=== PATIENT | male | born 1970 | race African-American/Black ===

== ENCOUNTER 2019-03-04 10:08 | Day surgery (SDC) | payer BC ==
[~2019-03-04 10:08] MED LIST: Lactated Ringers 1,000 ML IV SCH; Sodium Chloride 0.9% 10 ML Syringe FLUSH PRN
[2019-03-04] MEDS ORDERED: Propofol 200 MG/20 ML SDV ONE ×2 (12:16→12:31)
[2019-03-04] MEDS ORDERED: fentaNYL 100 MCG/2 ML SDV ONE (12:16)
--- NOTE | 2019-03-04 14:32 | OR ---
PREOPERATIVE DIAGNOSIS: Positive FIT test. POSTOPERATIVE DIAGNOSIS: Positive FIT test. PROCEDURE PERFORMED: Colonoscopy with polypectomy. INDICATION: The patient is a 49-year-old male with a history of positive FIT test, presents for colonoscopy for further evaluation. PROCEDURE IN DETAIL: This was done in the procedure room. Sedation was given per Anesthesia. He was placed in left lateral position. First, a rectal exam was done, was normal. The scope was introduced in the rectum, slowly advanced to the rectum, sigmoid, descending, transverse, and ascending colon until the cecum was reached. Upon reaching the cecum, the scope was slowly withdrawn with normal mucosal surfaces on the way out. No mucosal abnormalities, lesions, or polyps were noted until approximately 20 cm where a small polyp was found. It was removed with hot forceps and sent to pathology. FINAL DIAGNOSIS: Polyp at 20 cm. BKD: 03/04/2019 12:51:40 MODL: 03/04/2019 14:17:08 /[id number]
== END 2019-03-04 15:14 | disposition home or self-care (01) ==
LOC: VM.SDS 10:08
PROVIDERS: ATTEND Surgery
DX: D12.5 Benign neoplasm of sigmoid colon (principal); R73.03 Prediabetes
CPT/HCPCS: 45384; J2704; J3010; J7120